=== PATIENT | female | born 1965 | race Two or more races ===

== ENCOUNTER 2024-01-01 05:20 | Day surgery (SDC) | payer OTHER ==
[~2024-01-01 05:20] MED LIST: PEPCID AC20 MG PO
[2024-01-01] MEDS ORDERED: CEFAZOLIN SODIUM 1,000 MG VIAL ONE (08:18)
[2024-01-01] MEDS ORDERED: CEFAZOLIN SODIUM 1,000 MG VIAL IV ONE (09:15)
== END 2024-01-01 10:40 | disposition home or self-care (01) ==
LOC: CIR.AMB 05:20
PROVIDERS: ATTEND Surgery Surgery of the Hand
DX: M67.843 Other specified disorders of tendon, right hand (principal); Z88.6 Allergy status to analgesic agent

== ENCOUNTER 2025-06-30 07:00 | Day surgery (SDC) | payer OTHER ==
[~2025-06-30 07:00] MED LIST changes: +FOLIC ACID0.8 M1 PO; +[UNRECOGNIZED DRUG - OTHER]
[2025-06-30] MEDS ORDERED: CEFAZOLIN SODIUM 1,000 MG VIAL ONE (07:43)
[2025-06-30] MEDS ORDERED: TRIAMCINOLONE ACETONIDE 40 MG/ML VIAL ONE (08:26)
== END 2025-06-30 10:45 | disposition home or self-care (01) ==
LOC: CIR.AMB 07:00
PROVIDERS: ATTEND Surgery Surgery of the Hand
DX: M67.844 Other specified disorders of tendon, left hand (principal); Z88.8 Allergy status to other drugs, medicaments and biological substances